=== PATIENT | female | born 1965 | race Asian ===

== ENCOUNTER 2017-04-15 08:57 | Emergency (ER) | payer SELFPAY ==
[~2017-04-15] VITALS: Ht 149.9 cm; Wt 71.0 kg
[2017-04-15 09:01] VITALS: BP 150/92
[2017-04-15] MEDS ORDERED: FUROSEMIDE 20 MG TABLET PO ONE (09:30)
[2017-04-15 09:54] LABS: HEMATOCRIT 45.3 % (34.6-47.8); HEMOGLOBIN 15.5 g/dL (11.7-16.4); WHITE BLOOD COUNT 6.8 x10^3/uL (3.4-10)
[2017-04-15 10:08] LABS: ASPARTATE AMINO TRANSFERASE 13 U/L (15-37); BLOOD UREA NITROGEN 7 mg/dL (7-18)
[2017-04-15 10:14] LABS: IS PT STATUS REG ER OR PRE ER? YES
[2017-04-15] MEDS ORDERED: POTASSIUM CHLORIDE 20 MEQ TAB.ER.PRT ONE (10:50)
[2017-04-15] MEDS ORDERED: POTASSIUM CHLORIDE 20 MEQ TAB.ER.PRT PO ONE (11:00)
== END 2017-04-15 11:21 | disposition home or self-care (01) ==
LOC: ED 10:58
DX: R60.0 Localized edema (principal)
CPT/HCPCS: 36415; 71010; 80053; 83880; 84443; 84484; 85025; 93005; 99285